=== PATIENT | male | born 1975 | race Caucasian/White ===

== ENCOUNTER 2022-12-23 16:10 | Emergency (ER) | payer OTHER ==
[2022-12-23] MEDS ORDERED: DOXYCYCLINE 100 MG (VIBRAMYCIN) TABLET PO STA (17:13)
[2022-12-23] MEDS ORDERED: CEPHALEXIN 250 MG (KEFLEX) CAP PO STA (17:13)
--- NOTE | 2022-12-23 17:13 | ED Upper Extremity ---
General Chief Complaint: Upper Extremity Stated Complaint: LT ELBOW INJ Source: patient, RN/MD Exam Limitations: no limitations History of Present Illness Date Seen by Provider: Dec 23, 2022 Time Seen by Provider: 16:12 Initial Comments 47-year-old male with no pertinent past medical history coming in due to left elbow pain. He noticed a wound with a blister to his elbow 2 weeks ago he believes after he fell on it. This healed over and everything at that time. He noticed it started to swell, become red, and slightly painful since yesterday. Has not had any ibuprofen or Tylenol. He believes he might have been running a fever. He went to the urgent care and was referred here. Allergies and Home Medications Allergies Coded Allergies: No Known Drug Allergies (Unverified , 12/23/22) Patient Home Medication List Home Medication List Reviewed: Yes Cephalexin (Cephalexin) 500 Mg Tablet, 500 MG PO QID Prescribed by: CYNDI RODGERS on 12/23/221735 Doxycycline Hyclate (Doxycycline Hyclate) 100 Mg Tablet, 100 MG PO BID Prescribed by: CYNDI RODGERS on 12/23/221735 Review of Systems Constitutional: fever EENTM: no symptoms reported Respiratory: no symptoms reported Cardiovascular: no symptoms reported Musculoskeletal: see HPI Past Ewhpzbe-Xerwga-Grqhoa Hx Patient Social History Tobacco Use?: No Smokeless Tobacco Frequency: Current Everyday User Substance use?: No Past Medical History Surgeries: Yes Orthopedic Physical Exam Vital Signs Vital Signs - First Documented 12/23/22 17:50 Temp 36.9 Pulse 89 Resp 16 B/P (MAP) 104/88 Pulse Ox 98 O2 Delivery Room Air Capillary Refill : Height, Weight, BMI Height: '" Weight: lbs. oz. kg; BMI Method: General Appearance: WD/WN, no apparent distress HEENT: PERRL/EOMI, normal ENT inspection, pharynx normal Neck: non-tender, full range of motion, supple, normal inspection Cardiovascular: regular rate, rhythm, no edema, no murmur Respiratory: chest non-tender, lungs clear, normal breath sounds, no respiratory distress, no accessory muscle use Gastrointestinal: normal bowel sounds, non tender, soft; No distended, No guarding Back: normal inspection Shoulder: normal inspection, non-tender, no evidence of injury, normal ROM Elbow/Forearm: Left (Left elbow with redness and some swelling, some tenderness to palpation, completely normal range of motion of the elbow with no pain with movement) Wrist: Yes normal inspection, Yes non-tender, Yes no evidence of injury, Yes normal ROM Progress/Results/Core Measures Results/Orders My Orders Orders - CYNDI RODGERS MD Elbow 3 View Left (12/23/22 17:08) Dipht,Pertuss(Acell),Tet Adult (Boostrix (12/23/22 17:15) Ibuprofen Tablet (Motrin Tablet) (12/23/22 17:15) Doxycycline Hyclate Tablet (Vibramycin T (12/23/22 17:13) Cephalexin Capsule (Keflex Capsule) (12/23/22 17:13) Progress Progress Note : Progress Note 47-year-old male with above history coming in due to a left elbow that is red. ABCs were intact and vitals were stable on presentation. Physical exam with some redness and swelling along his olecranon bursa. He has no pain with range of motion of his elbow and he has full range of motion. Clinically this is not consistent with a septic elbow. We did take report from the nurse practitioner at the urgent care. X-ray of the elbow ordered and interpreted by me showing no fracture or dislocation. He also has no obvious joint effusion. I did a [id number] ultrasound as well showing no joint effusion. Clinically he has olecranon bursitis with overlying cellulitis. He was given an updated tetanus here, and will be sent home with antibiotics. Diagnostic Imaging Diagonstic Imaging: Xray (elbow) Comments NAME: [facility] REC#: [id number] PT STATUS: REG ER : 1975 PHYSICIAN: CYNDI RODGERS MD ADMIT DATE: 12/23/22/ER FS Draft Date of Exam:12/23/22 ELBOW 3 VIEW LEFT CLINICAL INDICATIONS: Patient with posterior elbow redness and swelling. No history of trauma. EXAM: X-ray of the left elbow, 3 views. COMPARISONS: None. FINDINGS: There is no acute fracture or dislocation. There is no elbow effusion. There is soft tissue swelling posterior to the olecranon process. There is no soft tissue gas or radiodense foreign object. IMPRESSION: 1: There is soft tissue swelling seen posterior to the olecranon process with no radiodense foreign object or soft tissue gas. This may be related to cellulitis or infection or inflammatory process. There is no bony erosive process. 2: The remainder of this exam is unremarkable. Dictated on workstation # [id number] Dict: 12/23/22 1725 Trans: 12/23/221728 CV [id number] Interpreted by: RICHELLE CONWAY MD Electronically signed by: Departure Impression Primary Impression: Olecranon bursitis of left elbow Additional Impression: Cellulitis Qualified Codes: L03.114 - Cellulitis of left upper limb Disposition: HOME, SELF-CARE Condition: Stable Departure-Patient Inst. Decision time for Depature: 17:40 Referrals: NO,LOCAL PHYSICIAN (PCP/Family) Primary Care Physician Patient Instructions: Cellulitis (Skin Infection), Adult ED, Olecranon Bursitis, Acute Pain, Adult (DC) Add. Discharge Instructions: It appears like your olecranon bursa which is the area over your elbow that helps lubricate the skin going over it is infected with the skin also being infected. You will be on 2 different antibiotics for the next 10 days. If you are not seeing improvement in the next 3 to 5 days, please follow-up with Kaushal Santos. If you develop worsening pain where you cannot bend your elbow at all, I would want you to be evaluated in the ER. Currently right now, you do not have a septic joint. Take ibuprofen and/or Tylenol as needed for pain or fever. Scripts Cephalexin (Cephalexin) 500 Mg Tablet 500 MG PO QID for 10 Days, #40 TAB Prov: CYNDI RODGERS MD 12/23/22 Doxycycline Hyclate (Doxycycline Hyclate) 100 Mg Tablet 100 MG PO BID for 10 Days, #20 TAB 0 Refills Prov: CYNDI RODGERS MD 12/23/22 CYNDI RODGERS MD Dec 23, 2022 17:13
[2022-12-23] MEDS ORDERED: IBUPROFEN 600 MG (MOTRIN) TAB PO ONE (17:15)
[2022-12-23] MEDS ORDERED: TETANUS,DIPTH,PERTUSS P/F (BOOSTRIX) 0.5 ML VIAL IM ONE (17:15)
--- NOTE | 2022-12-23 17:29 | Diagnostic Imaging Report ---
CLINICAL INDICATIONS: Patient with posterior elbow redness and swelling. No history of trauma. EXAM: X-ray of the left elbow, 3 views. COMPARISONS: None. FINDINGS: There is no acute fracture or dislocation. There is no elbow effusion. There is soft tissue swelling posterior to the olecranon process. There is no soft tissue gas or radiodense foreign object. IMPRESSION: 1: There is soft tissue swelling seen posterior to the olecranon process with no radiodense foreign object or soft tissue gas. This may be related to cellulitis or infection or inflammatory process. There is no bony erosive process. 2: The remainder of this exam is unremarkable. Dictated by: Dictated on workstation # [id number]
[2022-12-23] MEDS ORDERED: CEPH500T PO (17:36)
[2022-12-23] MEDS ORDERED: DOXY100T2 PO (17:36)
[2022-12-23 17:54] VITALS: BP 179/93
== END 2022-12-23 17:50 | disposition home or self-care (01) ==
LOC: ER FS 16:13
DX: M70.22 Olecranon bursitis, left elbow (principal); L03.114 Cellulitis of left upper limb; F17.220 Nicotine dependence, chewing tobacco, uncomplicated; Z23 Encounter for immunization; Z28.310 Unvaccinated for COVID-19
CPT/HCPCS: 73080; 90715